=== PATIENT | female | born 1985 | race African-American/Black ===

== ENCOUNTER 2024-12-08 15:42 | Emergency (ER) | payer BC, SELFPAY ==
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
[2024-12-08 15:51] VITALS: BP 120/74; PULSE 78; RESP 16; TEMP 36.8; O2SAT 100
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
== END 2024-12-08 17:48 | disposition home or self-care (01) ==
DX: M54.2 Cervicalgia (principal); M25.511 Pain in right shoulder; V43.52XA Car driver injured in collision with other type car in traffic accident, initial encounter
CPT/HCPCS: 72050; 73030; 99204; G0463